=== PATIENT | male | born 2000 | race Caucasian/White ===

== ENCOUNTER 2022-02-27 18:51 | Inpatient (IN) | payer OTHER, MEDICAID, SELFPAY ==
--- NOTE | ~2022-02-27 | US_ITS ---
EXAMINATION: US ABDOMEN LIMITED CLINICAL INFORMATION: Gallstones on CT.. COMPARISON: CT from today TECHNIQUE: Real-time imaging of the right upper quadrant abdominal viscera. FINDINGS: PANCREAS: Not well seen due to bowel gas. LIVER: Normal. The liver is normal in size. The liver contour is normal. Parenchymal echogenicity is normal. No focal hepatic lesion. There is no intrahepatic biliary duct dilatation seen. GALLBLADDER: Multiple stones in the gallbladder lumen. Gallbladder wall thickening measures 0.4 cm. Mild wall edema also noted. No pericholecystic fluid. COMMON BILE DUCT: Normal in caliber measuring 0.3 cm in diameter. RIGHT KIDNEY: Normal. No hydronephrosis. No renal calculi or focal parenchymal lesions. The kidney measures 9.8 cm in maximum dimension. FREE FLUID: None. US/US abdomen limited IMPRESSION: Cholelithiasis with gallbladder wall thickening and mild wall edema. These findings are suspicious for acute cholecystitis.
--- NOTE | ~2022-02-27 | CT_ITS ---
EXAMINATION: CT ABDOMEN AND PELVIS WITH CONTRAST CLINICAL INFORMATION: Abdominal pain COMPARISON: None TECHNIQUE: Multidetector volumetric images were obtained from the superior aspect of the liver through the pubic symphysis following administration 85 mL of Omnipaque 350 intravenous contrast. Sagittal and coronal reformatted images were obtained on the technologist's workstation. Oral contrast: No This CT examination was performed using dose optimization techniques as appropriate, variously including the following: *Automated exposure control *Adjustment of mA and/or kV according to patient size (this includes techniques or standardized protocols for targeted exams where dose is matched to indication/reason for exam; i.e. extremities or head) *Use of iterative reconstruction technique FINDINGS: LUNG BASES: The visualized lung bases are unremarkable. LIVER, GALLBLADDER, AND BILIARY TREE: The liver is normal in size, shape, and attenuation. No focal hepatic lesion or biliary ductal dilatation is present. The gallbladder is diffusely distended with gallstones. There is a suggestion of gallbladder wall thickening but no pericholecystic fluid. PANCREAS: Unremarkable. SPLEEN: Unremarkable. ADRENAL GLANDS: Unremarkable. KIDNEYS AND URETERS: The kidneys are normal in size, shape, and attenuation. No hydronephrosis, hydroureter, or calculi seen. No perinephric stranding. BLADDER: Unremarkable. GASTROINTESTINAL TRACT: Stomach and small bowel are nondilated. Normal appendix. The rectum is only partially distended and there is a suggestion of a mild irregular wall thickening. No pericolonic or perirectal inflammatory changes. ABDOMINAL WALL: Small fat-containing umbilical hernia. LYMPH NODES: Normal. VASCULAR: Unremarkable. PELVIC VISCERA: Unremarkable. OSSEOUS STRUCTURES: Unremarkable. CT/CT abdomen pelvis w IV con IMPRESSION: The gallbladder is diffusely distended with gallstones. There is a suggestion of mild gallbladder wall thickening. No pericholecystic fluid to strongly suggest cholecystitis however. If the patient's presentation would be consistent with acute cholecystitis, consider ultrasound for further evaluation. There is a suggestion of mild irregular rectal wall thickening. Although this could be due to underdistention, a subtle proctitis could have this appearance. Recommend clinical correlation.
--- NOTE | 2022-02-27 19:15 | MHC.EDTECH ---
THIS PCT IS ASSIGN TO PROVIDE 1:1 WITH PATIENT ,VITALS SIGN TAKEN AND BLOOD DRAWN AND SEND TO LAB .
[2022-02-27 19:19] VITALS: BP 126/65; PULSE 70; RESP 16; TEMP 37.2; O2SAT 98
--- NOTE | 2022-02-27 19:27 | ED_ITS ---
HPI - General Adult General Chief complaint: Abdominal Pain Stated complaint: abd pain Time Seen by Provider: 02/27/22 19:27 Source: patient and EMS Mode of arrival: EMS Limitations: no limitations History of Present Illness HPI narrative: Patient is a 21 year old assigned male at with no PMH presenting to the emergency department today from [facility] with abdominal pain x hours. Patient states that this abdominal pain was intermittent over the last few months, but has progressively worsened this afternoon. Endorses sharp/shooting 10/10 pain localized to RUQ with radiation to the epigastrium. Patient was given Tums with no relief. Endorses vomiting x 3 times. Patient denies any dizziness, lightheadedness, abdominal pain, fever, blurry vision, double vision, loss of vision, chest pain, difficulty breathing, shortness of breath, back pain, night sweats, blood in his urine or stool, syncope or a near syncopal episode, recent trauma or falls, bowel incontinence, bladder incontinence, bowel retention, bladder retention, or any other complaints at this time. Onset (ago): hour(s) Location: abdomen Severity: moderate Severity scale (1-10): 5 Quality: stabbing and sharp Pain Consistency: constant Relieving factors: none Exacerbating factors: none Associated symptoms: nausea/vomiting Treatments prior to arrival: none Related Data Home Medications Medication Instructions Recorded Confirmed escitalopram oxalate 20 mg tablet 20 mg PO DAILY 02/27/22 02/27/22 (Lexapro) melatonin 3 mg tablet 6 mg PO BEDTIME 02/27/22 02/27/22 trazodone 150 mg tablet 150 mg PO BEDTIME PRN Sleep 02/27/22 02/27/22 Allergies Allergy/AdvReac Type Severity Reaction Status Date / Time No Known Allergies Allergy Verified 02/27/22 19:39 [No Known Allergies*] Review of Systems Constitutional: Constitutional: Denies body ache(s), Denies chills, Denies fatigue, Denies fever(s), Denies headache(s), Denies poor appetite and Denies weakness Eyes: Eyes: Denies blurry vision, Denies change in vision and Denies diplopia ENT: Reports Normal hearing present, Denies dysphagia, Denies vertigo, Denies dizziness, Denies headache(s), Denies nasal congestion and Denies sinus pain Cardiovascular: Cardiovascular: Denies chest pain, Denies leg edema and Denies dyspnea Respiratory: Respiratory: Denies cough, Denies pain on inspiration and Denies dyspnea Gastrointestinal: Gastrointestinal: Reports abdominal pain, Denies change in stool character, Denies constipation, Denies GI cramping, Denies dysphagia and Denies diarrhea Genitourinary: Genitourinary: Reports no additional male genitourinary complaints, Denies hematuria, Denies oliguria, Denies difficulty urinating, Den ies dysuria, Denies urinary frequency, Denies urinary hesitancy, Denies urinary incontinence and Denies urinary urgency Musculoskeletal: Musculoskeletal: Denies myalgias, Denies atrophy, Denies arthralgias, Denies muscle weakness and Denies numbness Neurologic: Reports Normal hearing present, Denies vertigo, Denies dizziness, Denies headache(s), Denies numbness and Denies weakness Psychiatric: Psychiatric: Reports no additional psychiatric complaints Endocrine: Endocrine: Denies fatigue, Denies polyphagia and Denies polydipsia Hematologic/Lymphatic: Hematologic/Lymphatic: Reports no additional hematologic/lymphatic complaints Allergic/Immunologic: Allergic/Immunologic: Reports no additional allergic/immunologic complaints [facility] Past Medical History Attestation statement: The following information was validated with the patient. Source: old records reviewed and nursing notes reviewed Medical History Anxiety Depression Social History Social History Alcohol intake: current Alcohol intake frequency: a few times a month Patient Tobacco Use Status: Never used Tobacco Smoked in Last 30 Days: Yes Use of substances other than those prescribed or required for medical reasons: Yes Substance Use Type: Marijuana Advance Directives: No Advance Directives Information Provided: No Nutrition Risks: No Nutritional Risk Physical Exam ED Vital Signs: Vital Signs - 24 hr 02/27/22 19:19 02/27/22 19:39 02/27/22 19:56 Temperature 98.9 F 98.3 F 98.0 F Pulse Rate 70 71 Respiratory Rate 16 16 Blood Pressure 126/65 113/59 L Pulse Oximetry 98 98 Oxygen Delivery Method Room Air Room Air 02/27/22 21:45 Temperature 98.6 F Pulse Rate 76 Respiratory Rate 16 Blood Pressure 112/59 L Pulse Oximetry 98 Oxygen Delivery Method Room Air BMI result Body Mass Index 38.4 Const General: cooperative Nutritional Appearance: average body habitus Orientation/consciousness: patient oriented x3 Limitations: no limitations HENMT Head: Yes normal to inspection Ears: hearing grossly normal bilaterally General nose exam: Normal external nose present Face and sinus: Yes normal facial exam Mouth: Normal oral and palatal mucosa present, no drooling and no muffled voice Eyes General: appearance normal, both eyes and all related structures Periorbital: periorbital findings normal Eyelids: Yes eyelids normal Conjunctivae: conjunctivae normal Pupils: Equal, round and reactive pupils present EOM: EOMs intact bilaterally Neck Neck: Yes normal visual inspection, Yes full ROM and Yes no lymphadenopathy Chest Chest palpation & inspection: normal inspection of the chest Resp Effort & Inspection: normal respiratory effort Auscultation: clear to auscultation bilaterally Cardio Rate: regular rate Rhythm: regular rhythm GI Inspection: Yes normal to inspection Palpation (GI): Soft to palpation, not firm, Tenderness to palpation present (GI) in the RUQ, no guarding and not rigid General: Yes no CVA tenderness Back/Spine/Pelvis Back: no CVA tenderness Neuro General: patient oriented x3 Cranial nerves: Yes Equal, round and reactive pupils present and Yes Normal hearing present Cognition (Neuro): normal cognition Motor exam (neuro): 5/5 motor strength present throughout Sensory Exam: Normal double simultaneous stimulation for sensation Coordination: [id number] test normal Extrem General: Yes normal to inspection, Yes full ROM and Yes capillary refill normal Psych Appearance: grossly normal Mental Status: mental status grossly normal Affect: normal affect Attitude: cooperative Thought process: Normal thought process present Thought content: Normal thought content present Insight: Good insight present (Psych) Medications Administered Generic Name Dose Route Start Last Admin Trade Name Freq PRN Reason Stop Dose Admin Lactated Ringer's 1,000 mls @ 125 mls/hr 02/27/22 22:45 02/27/22 22:48 Lr IVCONT 125 mls/hr .Q8H JACKLYN Administration Sodium Chloride 3 ml 02/28/22 00:00 02/27/22 23:55 0.9 % Sodium Chloride Flush 3 Ml Syringe IVFLUSH Not Given QSHIFT JACKLYN Discontinued Medications Generic Name Dose Route Start Last Admin Trade Name Freq PRN Reason Stop Dose Admin Iohexol 100 ml 02/27/22 21:03 02/27/22 21:03 Iohexol 350 Mg/Ml 100 Ml Infus..Btl IV 02/27/22 21:04 85 ml ONCE ONE Administration Morphine Sulfate 4 mg 02/27/22 19:45 02/27/22 20:33 Morphine Sulfate 4 Mg/Ml Cartridge IVPUSH 02/27/22 19:46 4 mg ONCE ONE Administration Protocol Morphine Sulfate 4 mg 02/27/22 21:51 02/27/22 22:37 Morphine Sulfate 4 Mg/Ml Cartridge IVPUSH 02/27/22 21:52 4 mg ONCE ONE Administration Protocol Ondansetron HCl 4 mg 02/27/22 19:45 02/27/22 20:33 Ondansetron Hcl 4 Mg/2 Ml Vial IVPUSH 02/27/22 19:46 4 mg ONCE ONE Administration Medical Decision Making Medical Decision Making MDM Narrative: Patient is a 21 year old assigned male at with no reported medical history presenting to the emergency department today with right upper quadrant abdominal pain. Patient's physical exam showed right upper quadrant abdominal pain. Patient's blood work showed a slightly elevated WBC count of 11. Patient's abdominal CT showed a distended gallbladder with gallstones and mild wall thickening, radiologist recommended an abdominal US for clarification on the gallbladder. Patient's gallbladder US showed cholelithiasis with gallbladder wall thickening and mild wall edema which are suspicious for acute cholecystitis. I called and spoke to the surgeon who agreed to admission. Patient is not septic (@ 7584). I explained my physical exam findings as well as all test results to the patient. I answered all questions asked by the patient. Patient verbalized agreement and understanding with this treatment plan and admission. Patient is a resident of the inpatient, locked, unit of [facility]. Patient had SI which caused his admission there but has denied SI since being here. Patient remains on a 1 to 1. Patient is to be returned to [facility] after medical clearance. Differential Diagnosis Differential Diagnoses: The differential diagnosis associated with the presentation includes acute cholecystitis Consult Healthcare Provider Management of the patient was discussed with: Speech Communication Instructor (spoke to the surgeon as noted above in this chart) Lab Data [facility] Lab Attestation statement: I reviewed the patient's lab results. 02/27/22 20:12 02/27/22 20:12 Labs: Lab Results 02/27/22 02/27/22 02/27/22 Range/Units 20:12 20:12 22:01 WBC 11.0 H (4.8-10.8) X10*3/uL RBC 4.79 (4.60-5.80) X10*6/uL Hgb 14.7 (14.0-18.0) g/dl Hct 43.4 (42.0-52.0) % MCV 90.6 (80.0-98.0) fL MCH 30.7 (27.0-33.0) pg MCHC 33.9 (31.0-36.0) g/dl RDW 12.8 (11.0-16.0) % Plt Count 269 (160-400) X10*3/uL MPV 10.6 (9.4-12.4) fL Immature Gran % (Auto) 1.5 H (0.0-0.4) % Neut % (Auto) 76.1 H (45-73) % Lymph % (Auto) 15.9 L (20-40) % Blount % (Auto) 5.6 (2-11) % Eos % (Auto) 0.4 (0-4) % Baso % (Auto) 0.5 (0-2) % Lymph # (Auto) 1.8 (1.2-4.9) X10*3/uL Blount # (Auto) 0.6 (0.1-1.2) X10*3/uL Eos # (Auto) 0.0 (0.0-0.4) X10*3/uL Baso # (Auto) 0.1 (0.0-0.2) X10*3/uL Abs Immat Gran (auto) 0.16 H (0.00-0.03) X10*3/uL Absolute Neuts (auto) 8.4 H (2.0-8.3) x10*3/uL Absolute Nucleated RBC 0.000 (0.0-0.012) X10*3/uL Nucleated RBC % (auto) 0.0 (0.0-0.2) /100WBC Sodium 140 (135-145) mmol/L Potassium 4.3 (3.3-5.1) mmol/L Chloride 106 (96-108) mmol/L Carbon Dioxide 22 (22-29) mmol/L Anion Gap 16 (12-20) BUN 10 (9-16) mg/dL Creatinine 0.78 (0.5-1.4) mg/dL Estim Creat Clear Calc 188.2 Estimated GFR > 60 Random Glucose 100 (60-115) mg/dL Calcium 9.5 (8.4-10.2) mg/dL Total Bilirubin 0.6 (0.0-1.0) mg/dL AST 37 (5-37) U/L ALT 59 H (0-40) U/L Alkaline Phosphatase 80 (39-117) U/L Total Protein 6.8 (6.5-8.0) g/dL Albumin 4.1 (3.5-5.0) g/dL Lipase 13 (8-78) U/L COVID-19 (MARIA L) Negative (Negative) COVID-19 Clin Com See Note Radiology Impression Discussion of test interpretation with radiology: I have reviewed the radiologist's reading. Radiologist Impression: My interpretation is in agreement with the radiologist's impression of these imaging studies. EXAMINATION: CT ABDOMEN AND PELVIS WITH CONTRAST? CLINICAL INFORMATION: Abdominal pain? COMPARISON: None? TECHNIQUE: Multidetector volumetric images were obtained from the superior aspect of the liver through the pubic symphysis following administration 85 mL of Omnipaque 350 intravenous contrast. Sagittal and coronal reformatted images were obtained on the technologist's workstation.? Oral contrast: No This CT examination was performed using dose optimization techniques as appropriate, variously including the following: *Automated exposure control *Adjustment of mA and/or kV according to patient size (this includes techniques or standardized protocols for targeted exams where dose is matched to indication/reason for exam; i.e. extremities or head) *Use of iterative reconstruction technique FINDINGS: LUNG BASES: The visualized lung bases are unremarkable.? LIVER, GALLBLADDER, AND BILIARY TREE: The liver is normal in size, shape, and attenuation. No focal hepatic lesion or biliary ductal dilatation is present. The gallbladder is diffusely distended with gallstones. There is a suggestion of gallbladder wall thickening but no pericholecystic fluid.? PANCREAS: Unremarkable.? SPLEEN: Unremarkable.? ADRENAL GLANDS: Unremarkable.? KIDNEYS AND URETERS: The kidneys are normal in size, shape, and attenuation. No hydronephrosis, hydroureter, or calculi seen. No perinephric stranding. ? BLADDER: Unremarkable.? GASTROINTESTINAL TRACT: Stomach and small bowel are nondilated. Normal appendix. The rectum is only partially distended and there is a suggestion of a mild irregular wall thickening. No pericolonic or perirectal inflammatory changes.? ABDOMINAL WALL: Small fat-containing umbilical hernia.? LYMPH NODES: Normal. VASCULAR: Unremarkable. PELVIC VISCERA: Unremarkable.? OSSEOUS STRUCTURES: Unremarkable.? CT/CT abdomen pelvis w IV con IMPRESSION: The gallbladder is diffusely distended with gallstones. There is a suggestion of mild gallbladder wall thickening. No pericholecystic fluid to strongly suggest cholecystitis however. If the patient's presentation would be consistent with acute cholecystitis, consider ultrasound for further evaluation. ? ?There is a suggestion of mild irregular rectal wall thickening. Although this could be due to underdistention, a subtle proctitis could have this appearance. Recommend clinical correlation. Dictated By: Tru Dan MD Signed By: Electronically signed by Tru Dan MD 02/27/22 8603 EXAMINATION: US ABDOMEN LIMITED CLINICAL INFORMATION: Gallstones on CT.. COMPARISON: CT from today TECHNIQUE: Real-time imaging of the right upper quadrant abdominal viscera. FINDINGS: PANCREAS: Not well seen due to bowel gas. LIVER: Normal. The liver is normal in size. The liver contour is normal. Parenchymal echogenicity is normal. No focal hepatic lesion. There is no intrahepatic biliary duct dilatation seen. GALLBLADDER: Multiple stones in the gallbladder lumen. Gallbladder wall thickening measures 0.4 cm. Mild wall edema also noted. No pericholecystic fluid. COMMON BILE DUCT: Normal in caliber measuring 0.3 cm in diameter. RIGHT KIDNEY: Normal. No hydronephrosis. No renal calculi or focal parenchymal lesions. The kidney measures 9.8 cm in maximum dimension. FREE FLUID: None. US/US abdomen limited IMPRESSION: Cholelithiasis with gallbladder wall thickening and mild wall edema. These findings are suspicious for acute cholecystitis. Dictated By: Hernan Lawson MD Signed By: Electronically signed by Hernan Lawson MD 02/27/22 2227 Independent Historian Clinical information obtained from an independent historian. History obtained from or confirmed by: EMS Critical Care Time Critical Care Time Critical Care Time: Yes Total Critical Care Time: 30 Attestation: I spent 30 minutes of Critical Care Time with this patient. This does not include time spent on separately reported billable procedures. Discharge Plan Discharge Clinical Impression: Cholecystitis Patient Disposition: Admitted As Inpatient
[2022-02-27 19:39] VITALS: BP 134/82; PULSE 82; TEMP 36.8; O2SAT 97; BMI 38.4
[2022-02-27 19:56] VITALS: BP 113/59; PULSE 71; RESP 16; TEMP 36.7; O2SAT 98
[2022-02-27 20:17] LABS: MANUAL DIFF FLAG NO
[2022-02-27 20:27] LABS: Basophils Absolute Auto 0.1 X10*3/uL (0.0-0.2); Basophils Percent Auto 0.5 % (0-2); Eosinophils Percent Auto 0.4 % (0-4); Hematocrit 43.4 % (42.0-52.0); Hemoglobin 14.7 g/dl (14.0-18.0); Imm Gran Abs Auto 0.16 X10*3/uL (0.00-0.03); Imm Gran Pct Auto 1.5 % (0.0-0.4); Lymphocytes Absolute Auto 1.8 X10*3/uL (1.2-4.9); Lymphocytes Percent Auto 15.9 % (20-40); Mean Corpuscular HGB Conc 33.9 g/dl (31.0-36.0); Mean Corpuscular Hemoglobin 30.7 pg (27.0-33.0); Mean Corpuscular Volume 90.6 fL (80.0-98.0); Mean Platelet Volume 10.6 fL (9.4-12.4); Monocytes Absolute Auto 0.6 X10*3/uL (0.1-1.2); Monocytes Percent Auto 5.6 % (2-11); Neutrophils Absolute Auto 8.4 x10*3/uL (2.0-8.3); Neutrophils Percent Auto 76.1 % (45-73); Platelet Count 269 X10*3/uL (160-400); Red Blood Count 4.79 X10*6/uL (4.60-5.80); Red Cell Distribution Width 12.8 % (11.0-16.0)
--- NOTE | 2022-02-27 20:29 | PC.NURSE ---
no active vomiting. skin pwd. abd soft non tedner. moist mm. awaits CT.
[2022-02-27] MEDS: ondansetron HCL 4 MG/2 ML VIAL IVPUSH (20:33)
[2022-02-27] MEDS: Morphine Sulfate 4 MG/ML CARTRIDGE IVPUSH ×2 (20:33→22:37)
[2022-02-27 20:51] LABS: Alanine Aminotransferase 59 U/L (0-40); Albumin Level 4.1 g/dL (3.5-5.0); Alkaline Phosphatase 80 U/L (39-117); Anion Gap 16 (12-20); Aspartate Amino Transferase 37 U/L (5-37); Bilirubin Total 0.6 mg/dL (0.0-1.0); Blood Urea Nitrogen 10 mg/dL (9-16); Calcium 9.5 mg/dL (8.4-10.2); Carbon Dioxide 22 mmol/L (22-29); Chloride 106 mmol/L (96-108); Creatinine Clr Calc Pharmacy 188.2; Estimated Glomerular Filt Rate > 60; Glucose Random 100 mg/dL (60-115); Lipase 13 U/L (8-78); Potassium 4.3 mmol/L (3.3-5.1); Sodium 140 mmol/L (135-145); Total Protein 6.8 g/dL (6.5-8.0)
[2022-02-27] MEDS: iohexoL 350 MG/ML 100 ML INFUS..BTL IV (21:03)
[2022-02-27 21:45] VITALS: BP 112/59; PULSE 76; RESP 16; TEMP 37; O2SAT 98
--- NOTE | 2022-02-27 22:14 | PHA.MEDREC ---
Pharmacy Consult ? Medication Reconciliation Pharmacy has completed the medication reconciliation. No claim history, pt says he gets his medications at [facility] [address] in [place]. He was able to name medications and doses, also noted he had a new rx for nightmares but was unsure of what it was called because he had not picked it up yet. Asked him if it was prazosin and he told me that sounds familiar.
--- NOTE | 2022-02-27 22:28 | P.HPGS_ITS ---
History of Present Illness History of Present Illness Date of Service: 02/28/22 Chief complaint: biliary colic Narrative: Joe Maya is a 21 year old male with RUQ abd pain mild leukocytosis & gallstones, with mild GB wall edema on CT & U/S. CBD 3mm. The patient is seen following admission and notes that for the past 6 months he has been having indigestion and abdominal pain. He states he is in a intermediate house and voiced concerns over his abdominal pain that he states were again ordered by the staff, consequently he began punching windows and doors and acting out to gain their attention. He presented to the emergency room last night with an episode of what sounded like biliary colic or possible early acute calculous cholecystitis. He notes that his pain is resolved but he still has some aching in his upper abdomen. Nursing staff knows that he has lost his bed in the intermediate house he had been living in; a request for psychiatry involvement was made by the staff. Patient has no other significant medical issues to require hospitalist involvement at this time Patient notes that he smokes both marijuana and cigarettes heavily every day. He denies prior abdominal operations. Review of Systems Review of Systems: Yes all other systems are reviewed and are negative Constitutional: Constitutional: Reports as per [facility] Past Medical History Medical History Anxiety Depression Functional capacity: independent ambulation Social History Social History Household Members: Other Housing: Homeless Do you presently have visiting nurse or other home services: No Alcohol intake: current Alcohol intake frequency: a few times a month Patient Tobacco Use Status: Current everyday Tobacco user Tobacco use type: Cigarette Cigarette Packs Per Day: 1.5 Cigarettes Per Day: 30.0 Smoked in Last 30 Days: Yes e-Cigarette/Vaping Use: Currently Using Patient Interested in Nicotine Replacement: No Use of substances other than those prescribed or required for medical reasons: Yes Substance Use Type: Marijuana Substance Use Frequency: Daily Currently Displaying Signs/Symptoms of Drug Intoxication Withdrawal: No Any prior treatment program specific to substance use: No Have you been hit, kicked, punched, or otherwise hurt by someone within the past year? If so, by whom?: No Do you feel safe in your current relationship?: No Current Relationship Is there a partner from a previous relationship who is making you feel unsafe now?: No Are you made to feel afraid or neglected: No Advance Directives: No Advance Directives Information Provided: No Do you have thoughts of harming others: None Do you have a plan to hurt others: No Plan Recently lost weight without trying: No Nutrition Risks: No Nutritional Risk Meds Allergies Allergy/AdvReac Type Severity Reaction Status Date / Time No Known Allergies Allergy Verified 02/27/22 19:39 [No Known Allergies*] Active Medications: Current Medications Pharmacy Consult (Consult Rx Perform Med Rec) 1 each MISCELLANE ONCE PRN PRN Reason: Consult order Home Medications Medication Instructions Recorded Confirmed Last Taken Type escitalopram oxalate 20 mg tablet 20 mg PO DAILY 02/27/22 02/27/22 02/27/22 History (Lexapro) melatonin 3 mg tablet 6 mg PO BEDTIME 02/27/22 02/27/22 Unknown History trazodone 150 mg tablet 150 mg PO BEDTIME PRN Sleep 02/27/22 02/27/22 Unknown History Physical Exam Vital Signs: Vital Signs: Last Vital Signs Temp 98.6 F 02/27/22 21:45 Pulse 76 02/27/22 21:45 Resp 16 02/27/22 21:45 BP 112/59 L 02/27/22 21:45 Pulse Ox 98 02/27/22 21:45 O2 Del Method 02/27/22 21:45 BMI result Body Mass Index 38.4 The patient is non-toxic & in good spirits NC/AT, PERRLA, EOMI Mood, affect & judgment all appear appropriate Sclera anicteric conjunctiva pink and moist Oropharynx is clear with no aphthous ulcers, Mallampati class 4, mucous membranes moist Neck is supple with no masses, adenopathy or bruits Heart is regular, normal S1-S2 no rubs or murmurs Lungs are clear and equal anteriorly with no audible wheezing, rubs or dullness to percussion Abdomen is obese with no demonstrable hernias. No HSM, rebound, rigidity, guarding, masses or bruits are present. Patient has no epigastric or right upper quadrant pain on today's exam. Rectal exam is deferred Skin has good turgor and is free of rashes Extremities free of cyanosis clubbing edema Results Results Labs: Short CBC 02/27/22 Range/Units 20:12 WBC 11.0 H (4.8-10.8) X10*3/uL Hgb 14.7 (14.0-18.0) g/dl Hct 43.4 (42.0-52.0) % Plt Count 269 (160-400) X10*3/uL BMP 02/27/22 20:12 Sodium 140 Potassium 4.3 Chloride 106 Carbon Dioxide 22 BUN 10 Creatinine 0.78 Calcium 9.5 Liver Function 02/27/22 Range/Units 20:12 Total Bilirubin 0.6 (0.0-1.0) mg/dL AST 37 (5-37) U/L ALT 59 H (0-40) U/L Alkaline Phosphatase 80 (39-117) U/L Albumin 4.1 (3.5-5.0) g/dL Abdomen CT scan report/results: report reviewed and image reviewed CT scan - pelvis: report reviewed Abdominal ultrasound report/results: report reviewed Additional studies: This morning's labs show resolution of the leukocytosis and continued elevation of ALT consistent with fatty liver disease Assessment and Plan (1) Biliary colic: Status: Acute (2) Obesity (BMI 30-39.9): Status: Acute Plan NPO, IVF overnight Will obtain a psych consult given his comorbidities and recent behavior issues; I am told by nursing staff that he will need help to get to a different facility pain meds, antiemetics trend labs & exam possible OR 03/01/22, but will try clears Time Spent With Patient Time: Total time managing care of this patient today ____ minutes. Quality Stroke Does the patient have a stroke diagnosis?: No VTE Prior VTE?: No VTE Risk Level:: Surgical - low VTE Device Contraindication: N/A - Device Ordered VTE Drug Contraindication: Treatment Not Indicated Procedures Date of Service Date of Service: 02/28/22
[2022-02-27 22:32] LABS: COVID-19 Test Negative (Negative); IDNOW Serial# 55D5AD1C
[2022-02-27] MEDS: Lactated Ringers 1,000 ML 125 ML IVCONT (22:48)
--- NOTE | 2022-02-27 23:27 | PC.NURSE ---
pt resting on stretcher at this time with 8/10 abdominal pain. Pt has 1:[address] for suicide precautions. Pain medication and fluids were administered per MAR
[2022-02-28 00:28] VITALS: BP 135/71; PULSE 81; RESP 18; TEMP 37.2; O2SAT 98
[2022-02-28] MEDS: HYDROmorphone HCl 1 MG/ML SYRINGE 0.5 MG IVPUSH ×5 (00:49→19:14)
[2022-02-28 01:19] LABS: Appearance Urine Clear; Color Urine Yellow; Glucose Urine UA Negative (Negative); Leukocyte Esterase Urine Negative (Negative); Nitrite Urine Negative (Negative); Specific Gravity - Urine >= 1.030 (1.005-1.025); Urine Blood Negative (Negative); Urine Ketones 15 mg/dL (Negative); Urine Protein Negative (Neg-Trace)
[2022-02-28 03:38] VITALS: BP 98/44; PULSE 64; RESP 18; TEMP 36.7; O2SAT 99
[2022-02-28 05:08] LABS: Estimated Average Glucose 103 mg/dL; Hemoglobin A1c % 5.2 %
[2022-02-28] MEDS: Lactated Ringers 1,000 ML 125 ML IVCONT ×3 (05:13→20:28)
[2022-02-28 06:17] LABS: MANUAL DIFF FLAG NO
[2022-02-28 06:26] LABS: Basophils Absolute Auto 0.1 X10*3/uL (0.0-0.2); Basophils Percent Auto 0.7 % (0-2); Eosinophils Absolute Auto 0.2 X10*3/uL (0.0-0.4); Eosinophils Percent Auto 1.9 % (0-4); Hematocrit 43.7 % (42.0-52.0); Hemoglobin 14.6 g/dl (14.0-18.0); Imm Gran Abs Auto 0.02 X10*3/uL (0.00-0.03); Imm Gran Pct Auto 0.2 % (0.0-0.4); Lymphocytes Absolute Auto 4.2 X10*3/uL (1.2-4.9); Lymphocytes Percent Auto 46.7 % (20-40); Mean Corpuscular HGB Conc 33.4 g/dl (31.0-36.0); Mean Corpuscular Hemoglobin 30.2 pg (27.0-33.0); Mean Corpuscular Volume 90.3 fL (80.0-98.0); Mean Platelet Volume 10.3 fL (9.4-12.4); Monocytes Absolute Auto 0.6 X10*3/uL (0.1-1.2); Monocytes Percent Auto 6.1 % (2-11); Neutrophils Percent Auto 44.4 % (45-73); Platelet Count 265 X10*3/uL (160-400); Red Blood Count 4.84 X10*6/uL (4.60-5.80); White Blood Count 9.1 X10*3/uL (4.8-10.8)
[2022-02-28 06:36] LABS: Alanine Aminotransferase 59 U/L (0-40); Albumin Level 4.1 g/dL (3.5-5.0); Alkaline Phosphatase 84 U/L (39-117); Anion Gap 15 (12-20); Aspartate Amino Transferase 34 U/L (5-37); Bilirubin Total 1.1 mg/dL (0.0-1.0); Blood Urea Nitrogen 6 mg/dL (9-16); Calcium 9.5 mg/dL (8.4-10.2); Carbon Dioxide 26 mmol/L (22-29); Chloride 105 mmol/L (96-108); Creatinine Clr Calc Pharmacy 195.7; Estimated Glomerular Filt Rate > 60; Glucose Random 91 mg/dL (60-115); Potassium 3.9 mmol/L (3.3-5.1); Sodium 142 mmol/L (135-145); Total Protein 6.4 g/dL (6.5-8.0)
[2022-02-28 07:43] VITALS: BP 107/60; PULSE 70; RESP 18; TEMP 36.5; O2SAT 95
--- NOTE | 2022-02-28 11:53 | MHC.CM.PN ---
PT REPORTS [place] AND HAS BEEN SLEEPING ON THE STREETS HE REPORTS HE HAS BEEN HOMELESS AND UNABLE TO FIND A PENITENTIARY BED DESPITE CONTACTING ALL OF THEM HE REPORTS HE IS ALLOWED TO GO TO HIS MOTHERS HOME TO SEE IF HE HAS RECEIVED ANY CALLS HOWEVER THEN MUST LEAVE IMMEDIATELY PT REPORTS HE IS I THIS AREA ONLY BECAUSE [facility] THE CLOSE[facility] AVAILABLE [facility]YCH BED HE IS AWARE [facility] WILL NOT HOLD THE BED AND HE WILL NEED A NEW EVAL / BED SEARCH ONCE MEDICALLY CLEARED TRANSPORT TBD BY DISPOSITION
[2022-02-28] MEDS: Pantoprazole Sodium 40 MG/10 ML VIAL IVPUSH (13:02)
[2022-02-28] MEDS: Ketorolac Tromethamine 15 MG/ML VIAL IVPUSH ×2 (13:02→17:49)
[2022-02-28 16:00] VITALS: BP 110/54; PULSE 64; RESP 14; TEMP 35.8; O2SAT 96
[2022-02-28 20:31] VITALS: BP 114/58; PULSE 57; RESP 18; TEMP 36.6; O2SAT 95
[2022-03-01] MEDS: HYDROmorphone HCl 1 MG/ML SYRINGE 0.5 MG IVPUSH ×2 (00:06→04:02)
[2022-03-01] MEDS: Ketorolac Tromethamine 15 MG/ML VIAL IVPUSH ×5 (00:06→23:31)
[2022-03-01] MEDS: traZODone HCL 50 MG TABLET 150 MG PO (00:06)
[2022-03-01] MEDS: Melatonin 3 MG TABLET 6 MG PO (00:07)
[2022-03-01 03:15] VITALS: BP 108/51; PULSE 55; RESP 18; TEMP 36.6; O2SAT 9
[2022-03-01] MEDS: Lactated Ringers 1,000 ML 125 ML IVCONT (04:02)
[2022-03-01 06:00] LABS: MANUAL DIFF FLAG NO
[2022-03-01 06:03] LABS: Basophils Absolute Auto 0.1 X10*3/uL (0.0-0.2); Basophils Percent Auto 0.8 % (0-2); Eosinophils Absolute Auto 0.2 X10*3/uL (0.0-0.4); Hematocrit 40.8 % (42.0-52.0); Hemoglobin 13.1 g/dl (14.0-18.0); Imm Gran Abs Auto 0.01 X10*3/uL (0.00-0.03); Imm Gran Pct Auto 0.2 % (0.0-0.4); Lymphocytes Absolute Auto 3.4 X10*3/uL (1.2-4.9); Lymphocytes Percent Auto 56.5 % (20-40); Mean Corpuscular HGB Conc 32.1 g/dl (31.0-36.0); Mean Corpuscular Hemoglobin 30.6 pg (27.0-33.0); Mean Corpuscular Volume 95.3 fL (80.0-98.0); Mean Platelet Volume 10.6 fL (9.4-12.4); Monocytes Absolute Auto 0.4 X10*3/uL (0.1-1.2); Monocytes Percent Auto 6.3 % (2-11); Neutrophils Percent Auto 32.2 % (45-73); Platelet Count 224 X10*3/uL (160-400); Red Blood Count 4.28 X10*6/uL (4.60-5.80); Red Cell Distribution Width 13.1 % (11.0-16.0); White Blood Count 6.1 X10*3/uL (4.8-10.8)
[2022-03-01] MEDS: Pantoprazole Sodium 40 MG/10 ML VIAL IVPUSH (06:11)
[2022-03-01 06:47] LABS: Alanine Aminotransferase 50 U/L (0-40); Albumin Level 3.4 g/dL (3.5-5.0); Alkaline Phosphatase 62 U/L (39-117); Anion Gap 13 (12-20); Aspartate Amino Transferase 27 U/L (5-37); Blood Urea Nitrogen 7 mg/dL (9-16); Calcium 9.1 mg/dL (8.4-10.2); Carbon Dioxide 29 mmol/L (22-29); Chloride 106 mmol/L (96-108); Creatinine Clr Calc Pharmacy 212.8; Estimated Glomerular Filt Rate > 60; Glucose Random 73 mg/dL (60-115); Potassium 4.5 mmol/L (3.3-5.1); Sodium 143 mmol/L (135-145); Total Protein 5.2 g/dL (6.5-8.0)
[2022-03-01 07:38] VITALS: BP 109/56; PULSE 53; RESP 18; TEMP 36.5; O2SAT 95
[2022-03-01] MEDS: Escitalopram Oxalate 20 MG TABLET PO (08:39)
--- NOTE | 2022-03-01 08:45 | P.PNGS_ITS ---
Subjective Subjective Date of Service: 03/01/22 Patient reports: no new complaints Interval history: The patient is sleeping so sound like, I wrote had to shake him to wake him. Per nursing staff, the patient has requested narcotics even though he has no objective tachycardia or hypertension to corroborate his complaints of pain. Nursing reports that he requested narcotics own when the nurse went to administer at overnight, the patient was sound asleep. Patient continues to report abdominal pain that comes on 10-15 minutes after drinking liquids. I have explained to him that this is not typical of biliary colic or acute calculous cholecystitis. I discussed his labs with him and explained that his nicotine use and NSAID use (patient was taking ibuprofen for headaches) increase the risk of gastritis or peptic ulcer disease so we will treat this. If he is still having problems, we will consider Gastroenterology consultation, but in his age group with no unexplained weight loss or hematemesis, an upper endoscopy is not mandated and empiric treatment is typically recommended. In reviewing all this with the patient, he requested additional narcotics from the nurse and also said that he would try clear liquids again. Physical Exam Vital Signs: Vital Signs: Last Vital Signs Temp 97.7 F 03/01/22 07:38 Pulse 53 03/01/22 07:38 Resp 18 03/01/22 07:38 BP 109/56 L 03/01/22 07:38 Pulse Ox 95 03/01/22 07:38 O2 Del Method 03/01/22 07:38 BMI result Body Mass Index 38.4 Patient is sleeping comfortably and then communicative when awake His abdomen is obese and soft with no epigastric or right upper quadrant tenderness no rebound, rigidity or guarding is noted Objective Data Active Medications Acetaminophen (Acetaminophen 325 Mg Tablet) 650 mg PO Q6H PRN PRN Reason: Pain, Mild (Pain Scale 1-3) Escitalopram Oxalate (Escitalopram Oxalate 20 Mg Tablet) 20 mg PO DAILY [facility] Last Admin: 03/01/22 08:39 Dose: 20 mg Documented By: ANGLE Hydromorphone HCl (Hydromorphone Hcl 1 Mg/Ml Syringe) 0.5 mg IVPUSH Q4H PRN; Protocol PRN Reason: Pain, Severe (Pain Scale 7-10) Last Admin: 03/01/22 04:02 Dose: 0.5 mg Documented By: NEISHA Lactated Ringer's (Lr) 1,000 mls @ 125 mls/hr IVCONT .Q8H [facility] Last Admin: 03/01/22 04:02 Dose: 125 mls/hr Documented By: NEISHA Ketorolac Tromethamine (Ketorolac Tromethamine 15 Mg/Ml Vial) 15 mg IVPUSH Q6H [facility] Last Admin: 03/01/22 06:11 Dose: 15 mg Documented By: NEISHA Melatonin (Melatonin 3 Mg Tablet) 6 mg PO BEDTIME [facility] Last Admin: 03/01/22 00:07 Dose: 6 mg Documented By: NEISHA Ondansetron HCl (Ondansetron Hcl 4 Mg/2 Ml Vial) 4 mg IVPUSH Q8H PRN PRN Reason: Nausea and Vomiting Pantoprazole Sodium (Pantoprazole Sodium 40 Mg/10 Ml Vial) 40 mg IVPUSH DAILY@0630 [facility] Last Admin: 03/01/22 06:11 Dose: 40 mg Documented By: NEISHA Pharmacy Consult (Consult Rx Perform Med Rec) 1 each MISCELLANE ONCE PRN PRN Reason: Consult order Sodium Chloride (0.9 % Sodium Chloride Flush 3 Ml Syringe) 3 ml IVFLUSH QSHIFT [facility] Last Admin: 03/01/22 08:41 Dose: Not Given Documented By: ANGLE Non-Admin Reason: IV Running Trazodone HCl (Trazodone Hcl 50 Mg Tablet) 150 mg PO BEDTIME PRN PRN Reason: Sleep Last Admin: 03/01/22 00:06 Dose: 150 mg Documented By: NEISHA Labs 03/01/22 05:03 03/01/22 05:03 Labs: Laboratory Results - last 24 hr 03/01/22 03/01/22 05:03 05:03 MCV 95.3 D MCH 30.6 MCHC 32.1 RDW 13.1 Plt Count 224 MPV 10.6 Immature Gran % (Auto) 0.2 Neut % (Auto) 32.2 L Lymph % (Auto) 56.5 H Waldo % (Auto) 6.3 Eos % (Auto) 4.0 Baso % (Auto) 0.8 Lymph # (Auto) 3.4 Waldo # (Auto) 0.4 Eos # (Auto) 0.2 Baso # (Auto) 0.1 Abs Immat Gran (auto) 0.01 Absolute Neuts (auto) 2.0 Absolute Nucleated RBC 0.000 Nucleated RBC % (auto) 0.0 Anion Gap 13 Estim Creat Clear Calc 212.8 Estimated GFR > 60 Random Glucose 73 Calcium 9.1 Total Bilirubin 1.0 AST 27 ALT 50 H Alkaline Phosphatase 62 Total Protein 5.2 L Albumin 3.4 L Procedures Date of Service Date of Service: 03/01/22 Progress Note: A&P Assessment and plan (1) Biliary colic: Status: Acute (2) Obesity (BMI 30-39.9): Status: Acute Plan I have DC to his narcotics and advised him that he will not receive any more. I voiced concern over misuse of this medication given the lack of empiric evidence that he is in pain as evidence by the lack of tachycardia, hypertension and his falling asleep after requesting narcotics. The patient is willing to go back on clear liquids again. I have added Carafate to treat for peptic ulcer disease. If the patient is doing well and tolerates clear liquids, he is suitable for discharge with outpatient follow-up. Patient will likely need interval cholecystectomy but his vitals, exam & labs do not support the diagnosis of acute calculous cholecystitis. Time Spent With Patient Time: Total time managing care of this patient today ____ minutes. Quality Stroke Does the patient have a stroke diagnosis?: No VTE Prior VTE?: No VTE Risk Level:: Surgical - low VTE Device Contraindication: N/A - Device Ordered VTE Drug Contraindication: Treatment Not Indicated
[2022-03-01] MEDS: Lactated Ringers 1,000 ML 80 ML IVCONT (15:22)
[2022-03-01 16:00] VITALS: BP 132/72; PULSE 63; RESP 19; TEMP 36.9; O2SAT 97
[2022-03-01] MEDS: Sucralfate 1 GM TABLET PO (16:59)
--- NOTE | 2022-03-01 18:02 | PC.NURSE ---
1800 pt reports RUQ pain worsening after clear liquid diet advanced to regular, scheduled toradol given, Dr. Kaufman notified and requests no narcotics to be given.
[2022-03-01 19:54] VITALS: BP 115/61; PULSE 80; RESP 18; TEMP 35.8; O2SAT 99
[2022-03-02] MEDS: Lactated Ringers 1,000 ML 80 ML IVCONT (03:23)
[2022-03-02] MEDS: Melatonin 3 MG TABLET 6 MG PO (03:26)
[2022-03-02] MEDS: traZODone HCL 50 MG TABLET 150 MG PO (03:26)
[2022-03-02 03:43] VITALS: BP 102/55; PULSE 57; RESP 18; TEMP 36.6; O2SAT 96
[2022-03-02] MEDS: Ketorolac Tromethamine 15 MG/ML VIAL IVPUSH ×2 (05:35→12:04)
[2022-03-02] MEDS: Pantoprazole Sodium 40 MG/10 ML VIAL IVPUSH (05:36)
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
[2022-03-02] MEDS: 0.9 % Sodium Chloride Flush 3 ML SYRINGE IVFLUSH (07:35)
[2022-03-02] MEDS: Escitalopram Oxalate 20 MG TABLET PO (07:35)
[2022-03-02] MEDS: Sucralfate 1 GM TABLET PO (07:35)
[2022-03-02 07:58] VITALS: BP 97/55; PULSE 57; RESP 20; TEMP 36.2; O2SAT 95
--- NOTE | 2022-03-02 12:30 | MHC.CM.PN ---
PER CARE TEAM PT WILL BE D/C'D TO [facility] LATER TODAY, NSG AND PT AWARE.
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
== END 2022-03-02 14:52 ==
LOC: HO.ED 19:32 → HO.EDOVER 22:42 → HO.S3 23:15
PROVIDERS: Physician Assistant Medical; Admitting Provider Surgery; Emergency Provider Emergency Medicine; Visit Provider Surgery
DX: K80.10 Calculus of gallbladder with chronic cholecystitis without obstruction (principal); E66.9 Obesity, unspecified; F41.9 Anxiety disorder, unspecified; Z68.38 Body mass index [BMI] 38.0-38.9, adult; F17.210 Nicotine dependence, cigarettes, uncomplicated; F32.A Depression, unspecified; Z20.822 Contact with and (suspected) exposure to COVID-19; Z71.6 Tobacco abuse counseling; Z79.899 Other long term (current) drug therapy
CPT/HCPCS: 36415; 74177; 76705; 80053; 81003; 83036; 83690; 85025; 87635; 96374; 96375; 99285; J1170; J1885; J2270; J2405; Q9967; S9485

== ENCOUNTER 2022-03-02 13:41 | Inpatient (IN) | payer OTHER, SELFPAY ==
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
[2022-03-02 15:54] VITALS: BP 148/76; PULSE 66; RESP 18; TEMP 36.7; O2SAT 96
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
[2022-03-02] MEDS: Nicotine Polacrilex 2 MG GUM 4 MG BUCCAL (19:38)
[2022-03-02] MEDS: hydrOXYzine HCL 25 MG TABLET PO (22:11)
[2022-03-02] MEDS: traZODone HCL 50 MG TABLET PO ×2 (22:11→23:17)
[2022-03-02] MEDS: Melatonin 3 MG TABLET 6 MG PO (23:19)
[2022-03-03 08:57] LABS: Estimated Average Glucose 103 mg/dL; Hemoglobin A1c % 5.2 %
[2022-03-03 09:17] LABS: Alanine Aminotransferase 41 U/L (0-40); Albumin Level 3.9 g/dL (3.5-5.0); Alkaline Phosphatase 76 U/L (39-117); Anion Gap 14 (12-20); Aspartate Amino Transferase 22 U/L (5-37); Bilirubin Total 0.5 mg/dL (0.0-1.0); Blood Urea Nitrogen 7 mg/dL (9-16); Calcium 9.6 mg/dL (8.4-10.2); Carbon Dioxide 28 mmol/L (22-29); Chloride 105 mmol/L (96-108); Cholesterol 175 mg/dL; Estimated Glomerular Filt Rate > 60; Glucose Fasting 91 mg/dL (60-99); HDL Cholesterol 30 mg/dL; LDL Cholesterol Calculated 113 mg/dl; Potassium 4.3 mmol/L (3.3-5.1); Sodium 143 mmol/L (135-145); Total Protein 6.1 g/dL (6.5-8.0); Triglycerides 163 mg/dL
[2022-03-03 09:33] LABS: Thyroid Stimulating Hormone 2.99 uIU/mL (0.32-4.0)
[2022-03-03 09:47] LABS: Folate 5.3 ng/mL (> or = 4.0); Vitamin B12 287 pg/mL (200-900)
[2022-03-03] MEDS: Nicotine Polacrilex 2 MG GUM 4 MG BUCCAL ×5 (11:01→20:24)
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
[2022-03-03] MEDS: Sucralfate 1 GM TABLET PO (17:28)
[2022-03-03 21:00] VITALS: BP 136/69; PULSE 81; RESP 16; TEMP 36.8; O2SAT 97
[2022-03-03] MEDS: traZODone HCL 50 MG TABLET 150 MG PO (21:36)
[2022-03-03] MEDS: Melatonin 3 MG TABLET 6 MG PO (21:36)
[2022-03-04 06:00] VITALS: BP 121/68; PULSE 75; RESP 16; TEMP 36.6; O2SAT 98
[2022-03-04] MEDS: Sucralfate 1 GM TABLET PO (09:27)
[2022-03-04] MEDS: Nicotine Polacrilex 2 MG GUM 4 MG BUCCAL ×2 (09:57→11:53)
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
== END 2022-03-04 12:40 | disposition home or self-care (01) | DRG 751 ==
PROVIDERS: Admitting Provider Psychiatry & Neurology Psychiatry; Visit Provider Social Worker
DX: F33.1 Major depressive disorder, recurrent, moderate (principal); R45.851 Suicidal ideations; K80.50 Calculus of bile duct without cholangitis or cholecystitis without obstruction; F17.210 Nicotine dependence, cigarettes, uncomplicated; Z71.6 Tobacco abuse counseling; Z79.899 Other long term (current) drug therapy
CPT/HCPCS: 36415; 73130; 80053; 80061; 82607; 82746; 83036; 84443